=== PATIENT | female | born 1965 | race Two or more races ===

== ENCOUNTER → 2019-08-02 | Day surgery (SDC) | payer MEDICAID, OTHER ==
[~2019-08-02] VITALS: Ht 162.6 cm; Wt 63.5 kg
[~2019-08-02] MED LIST: ASPI-1393 PO; GREE1CAP PO; LACT1CAP68 PO; LACTATED RINGERS 1,000 ML IV SCH; MULT-1116 PO; OMEG100017 PO
[2019-08-02 10:04] LABS: CHLORIDE 110 mEq/L (98-107)
[2019-08-02 10:08] LABS: BASOPHILS % 0.3 % (0.0-2.0); EOSINOPHILS % 2.1 % (0.0-5.0); HEMATOCRIT. 38.8 % (36.0-48.0); HEMOGLOBIN. 13.1 g/dL (12.0-16.0); LYMPHOCYTES % 13.4 % (20.0-50.0); MEAN CORPUSCULAR HEMOGLOBIN 29.6 pg (28.0-32.0); MEAN CORPUSCULAR VOLUME 87.7 fL (81.0-99.0); MEAN PLATELET VOLUME 7.9 fl (7.4-10.4); MONOCYTES % 3.6 % (2.0-8.0); NEUTROPHILS % 80.6 % (40.0-76.0); PLATELET 303 x1000/uL (130-400); RED BLOOD CELL COUNT 4.43 mill/uL (4.2-5.4); RED CELL DISTRIBUTION WIDTH 14.1 % (11.6-14.6)
== END | disposition home or self-care (01) ==
LOC: OR 09:21
PROVIDERS: ATTEND Obstetrics & Gynecology
DX: N92.6 Irregular menstruation, unspecified (principal); R10.2 Pelvic and perineal pain; Z53.8 Procedure and treatment not carried out for other reasons; Z79.82 Long term (current) use of aspirin; Z79.899 Other long term (current) drug therapy; Z88.8 Allergy status to other drugs, medicaments and biological substances
CPT/HCPCS: 36415; 80048; 86850; 86900; 93005